=== PATIENT | female | born 1950 ===

== ENCOUNTER 2021-12-20 06:40 | Day surgery (SDC) | payer OTHER ==
[~2021-12-20] VITALS: Ht 162.6 cm; Wt 65.8 kg
[~2021-12-20 06:40] MED LIST: LOSARTAN-HCTZ1 EACH PO; ROSUVASTATIN CAL5 MG PO; SYNTHROID75 MCG PO; TENORMIN25 MG PO
[2021-12-20] MEDS ORDERED: PERCOCET 5-3251 EACH PO (10:51)
== END 2021-12-20 17:15 | disposition home or self-care (01) ==
LOC: CIR.AMB 06:40
PROVIDERS: ATTEND Surgery
DX: C73 Malignant neoplasm of thyroid gland (principal); I10 Essential (primary) hypertension; F41.0 Panic disorder [episodic paroxysmal anxiety]; K21.9 Gastro-esophageal reflux disease without esophagitis; J32.8 Other chronic sinusitis; Z20.822 Contact with and (suspected) exposure to COVID-19